=== PATIENT | female | born 1990 | race African-American/Black ===

== ENCOUNTER 2018-04-30 13:46 | Emergency (ER) | payer BC ==
[~2018-04-30] VITALS: Ht 170.2 cm; Wt 75.0 kg
[~2018-04-30 13:46] MED LIST: CELEXA10 MG PO; FOLIC ACID1 MG PO; FUROSEMIDE20 MG PO; K-DUR20 MEQ PO; KEPPRA1000 MG PO; PERCOCET 10/3251 TA1 PO; PHENERGAN25 M1 PO; SYNTHROID100 MCG PO; VALIUM10 MG PO; VITAMIN B-121000 MCG IM; VITAMIN D250000 UNIT PO
[2018-04-30 13:48] VITALS: Ht 170.2 cm; Wt 75.0 kg
[2018-04-30] MEDS ORDERED: MERREM 1 GM/NS 11 G1 IV (13:50)
[2018-04-30] MEDS ORDERED: VANCOMYCIN 1 GM/1 G1 IV (13:51)
[2018-04-30] MEDS ORDERED: MYCAMINE 100MG100 M1 IV (13:52)
[2018-04-30] MEDS ORDERED: MULTIPLE VITAMI1 TA1 PO (13:53)
[2018-04-30] MEDS ORDERED: PRILOSEC (13:54)
[2018-04-30] MEDS ORDERED: TRI LINYAH (13:55)
[2018-04-30] MEDS ORDERED: ACETAMINOPHEN325 MG PO (13:56)
[2018-04-30] MEDS ORDERED: ZOFRAN4 MG PO (13:57)
[2018-04-30 15:30] LABS: BASOPHILS 0.5 % (0-2); EOSINOPHILS 6.9 % (0-7); HEMATOCRIT 28.4 % (36.0-48.0); HEMOGLOBIN 8.1 g/dL (12-16); LYMPHOCYTES 34.6 % (15-50); MCH 24.8 pg (26.0-34.0); MCHC 28.5 g/dL (31.0-37.0); MCV 87.1 fL (80.0-100.0); MONOCYTES 6.5 % (2-11); NEUTROPHILS 50.5 % (40-80); PLATELET COUNT 249 10x3/uL (130-400); RBC 3.26 10x6/uL (4.00-5.40); RDW 22.1 % (11.5-14.5); WBC 8.9 10x3/uL (4.8-10.8)
[2018-04-30 16:20] LABS: ALBUMIN 2.9 g/dL (3.4-5.0); ALKALINE PHOSPHATASE 201 U/L (46-116); ALT (SGPT) 183 U/L (10-68); BILIRUBIN - TOTAL 0.25 mg/dL (0.2-1.3); CALC OSMOLALITY 282 mosm/kg (275-300); CALCIUM 8.9 mg/dL (8.5-10.1); CHLORIDE - SERUM 105 mmol/L (98-107); CREATININE - SERUM 0.5 mg/dL (0.6-1.3); GLUCOSE 94 mg/dL (74-106); POTASSIUM - SERUM 4.3 mmol/L (3.5-5.1); PROTEIN - SERUM 7.3 g/dL (6.4-8.2); SODIUM 142 mmol/L (136-145); UREA NITROGEN 12 mg/dL (7-18); eGFR NON AFRICAN AMERICAN > 90 mL/min (90-120)
[2018-05-01 04:21] VITALS: BP 111/79
== END 2018-05-01 04:21 ==
LOC: D.ER 13:46
PROVIDERS: Family Medicine
DX: M79.605 Pain in left leg (principal); M25.512 Pain in left shoulder; Z86.73 Personal history of transient ischemic attack (TIA), and cerebral infarction without residual deficits; E07.9 Disorder of thyroid, unspecified; K21.9 Gastro-esophageal reflux disease without esophagitis; F17.200 Nicotine dependence, unspecified, uncomplicated; S43.005A Unspecified dislocation of left shoulder joint, initial encounter; X58.XXXA Exposure to other specified factors, initial encounter; Y93.89 Activity, other specified; Y92.230 Patient room in hospital as the place of occurrence of the external cause